=== PATIENT | female | born 1950 | race Caucasian/White ===

== ENCOUNTER 2017-06-24 13:27 | Emergency (ER) | payer BC, MEDICARE ==
[~2017-06-24] VITALS: Ht 170.2 cm; Wt 81.4 kg
[~2017-06-24 13:27] MED LIST: CIPR500T4 PO; ESTR0.5T9 PO; LIAL1.2T PO; MACR100C PO
[2017-06-24 13:59] VITALS: BP 178/77; PULSE 64; RESP 16; TEMP 97.5; O2SAT 99
[2017-06-24 15:05] VITALS: BP 164/78; PULSE 59; RESP 16; O2SAT 99
[2017-06-24] MEDS ORDERED: ONCETAB7 PO (15:25)
[2017-06-24] MEDS ORDERED: PROB1CHW2 PO (15:25)
[2017-06-24] MEDS ORDERED: CURCPOW PO (15:25)
[2017-06-24 15:44] LABS: BLOOD, URINE NEG (NEG); GLUCOSE,URINE NEG (NEG); KETONE, URINE NEG (NEG); NITRITE,URINE NEG (NEG)
[2017-06-24] MEDS ORDERED: MECLIZINE HCL 25 MG TAB PO ONE (15:45)
[2017-06-24] MEDS ORDERED: ONDANSETRON ODT 4 MG TAB PO ONE (15:45)
[2017-06-24 15:47] LABS: METHOD OF COLLECTION CLEAN CATCH; URINE COLOR STRAW (YELLW/STRAW)
[2017-06-24 15:50] LABS: COMMENT (UR) CULT NOT INDICATED; CULTURE IF INDICATED CULT NOT INDICATED; SQUAMOUS EPITHELIAL CELL URINE 0-5 /hpf (0-5)
[2017-06-24] MEDS ORDERED: ZOFR4TAB PO (15:59)
[2017-06-24] MEDS ORDERED: MECL-62 PO (15:59)
--- NOTE | 2017-06-24 16:04 | PD ---
HPI Chief Complaint: Dizziness Time Seen by Provider: 15:21 Travel History International Travel<30 days: No Contact w/Intl Traveler<30days: No Traveled to known affect area: No History of Present Illness HPI This patient complains of a room spinning dizziness that started when she woke up this morning. She's had positional vertigo before and this feels the same. No headache or syncope or chest pain. Severity was moderate. No alleviating factors. Also would like her urine checked to make sure she doesn't have UTI, recently treated with Cipro PFSH Past Medical History Gastrointestinal Disorders: Yes (CROHNS) Genitourinary: Yes (FREQUENT BLADDER INFECTIONS) Reproductive: Yes (OVARIAN CYSTS) Immunizations Current: Yes ?: Not Tubal Ligation: Yes Past Surgical History Abdominal Surgery: Yes (BOWEL RESECTION) Appendectomy: Yes Hysterectomy: Yes Social History Alcohol Use: No Tobacco Use: No (FORMER) Substance Use: No Allergies-Medications (Allergen,Severity, Reaction): Coded Allergies: acetaminophen (Unverified Allergy, Severe, Rash, 06/24/17) amoxicillin (Unverified Allergy, Severe, Anaphylaxis, 06/24/17) iodine (Unverified Allergy, Severe, Anaphylaxis, 06/24/17) penicillin G (Unverified Allergy, Severe, Anaphylaxis, 06/24/17) potassium iodide (Unverified Allergy, Severe, Anaphylaxis, 06/24/17) povidone-iodine (Unverified Allergy, Severe, Anaphylaxis, 06/24/17) sodium iodide (Unverified Allergy, Severe, Anaphylaxis, 06/24/17) sodium iodide (Unverified Allergy, Severe, Anaphylaxis, 06/24/17) Reported Meds & Prescriptions Reported Meds & Active Scripts Active Zofran (Ondansetron HCl) 4 Mg Tab 4 Mg PO Q6HR PRN Meclizine (Meclizine HCl) 25 Mg Tab 25 Mg PO TID PRN Reported Acidophilus (Probiotic Product) 1 Chew 1 Chew PO DAILY Curcumin (Turmeric (Curcuma Longa) (Bulk) 95 % Pow 500 Mg PO DAILY Once Daily (Multivitamin) 1 Each Tablet 1 Tab PO DAILY Review of Systems General / Constitutional: No: Fever HENT: No: Headaches Cardiovascular: No: Chest Pain or Discomfort Physical Exam Narrative GENERAL: Well-nourished, well-developed patient in no apparent distress. SKIN: Focused skin assessment reveals no rash and nodules. Skin is Warm and dry. HEAD: Atraumatic. Normocephalic. EYES: Pupils equal and round. No scleral icterus. No injection or drainage. ENT: No nasal bleeding or discharge. Mucous membranes pink and moist. NECK: Trachea midline. No JVD. CARDIOVASCULAR: Regular rate and rhythm. No murmur appreciated. RESPIRATORY: No accessory muscle use. Clear to auscultation. Breath sounds equal bilaterally. GASTROINTESTINAL: Abdomen soft, non-tender, nondistended. Hepatic and splenic margins not palpable. MUSCULOSKELETAL: No obvious deformities. No clubbing. No cyanosis. No edema. NEUROLOGICAL: Awake and alert. No obvious cranial nerve deficits. Motor grossly within normal limits. Normal speech. PSYCHIATRIC: Appropriate mood and affect; insight and judgment normal. Data Data Last Documented VS Vital Signs Date Time Temp Pulse Resp B/P (MAP) Pulse Ox O2 Delivery O2 Flow Rate FiO2 06/24/17 15:05 59 16 164/78 (106) 99 Room Air 06/24/17 13:59 97.5 Orders Orders Urinalysis - C+S If Indicated (06/24/17 15:34) Meclizine (Antivert) (06/24/17 15:45) Ondansetron Odt (Zofran Odt) (06/24/17 15:45) Labs Laboratory Tests Test 06/24/17 15:10 Urine Collection Type CLEAN CATCH Urine Color STRAW Urine Turbidity CLEAR Urine pH 6.0 Urine Specific [place] 1.004 Urine Protein NEG mg/dL Urine Glucose (UA) NEG mg/dL Urine Ketones NEG mg/dL Urine Occult Blood NEG Urine Nitrite NEG Urine Bilirubin NEG Urine Leukocyte Esterase NEG Urine Squamous Epithelial Cells 0-5 /hpf Microscopic Urinalysis Comment CULT NOT INDICATED MDM Medical Decision Making Medical Screen Exam Complete: Yes Emergency Medical Condition: Yes Medical Record Reviewed: Yes Differential Diagnosis Positional vertigo, labyrinthitis, flu syndrome Narrative Course I have reviewed the patient's electronic medical record. Presentation is consistent with positional vertigo. She is neurologically intact. No objective findings. I gave her dose of meclizine and Zofran and prescriptions for the same. Urinalysis is normal The patient was advised to follow up with their physician and return if they worsen. Diagnosis Primary Impression: Positional vertigo Qualified Codes: H81.10 - Benign paroxysmal vertigo, unspecified ear Additional Impression: Urinary frequency Additional Instructions: The patient was advised to follow up with their physician and return if they worsen. The patient was warned about potential sedation for the medications they will receive on prescription. Med/Other Pt SpecificInfo: Prescription(s) given Scripts Ondansetron (Zofran) 4 Mg Tab 4 MG PO Q6HR Y for NAUSEA OR VOMITING, #12 TAB 0 Refills Prov: Fer Vogel MD 06/24/17 Meclizine (Meclizine) 25 Mg Tab 25 MG PO TID Y for VERTIGO, #20 TAB 0 Refills Prov: Fer Vogel MD 06/24/17 Disposition: 01 DISCHARGE HOME Condition: Stable Fer Vogel MD Jun 24, 2017 16:04
[2017-06-24 16:19] VITALS: BP 159/72
== END 2017-06-24 16:20 | disposition home or self-care (01) ==
LOC: PHED 13:27
DX: H81.10 Benign paroxysmal vertigo, unspecified ear (principal); R35.0 Frequency of micturition
CPT/HCPCS: 81001; 99284